=== PATIENT | male | born 1945 | race Caucasian/White ===

== ENCOUNTER 2020-10-17 13:28 | Inpatient (IN) ==
[2020-10-17 15:54] LABS: Basophils # 0.1 K/mcL (0.0-0.2); Basophils % 0.8 %; Eosinophils # 0.2 K/mcL (0.0-0.6); Eosinophils % 3.7 %; Hematocrit 42.9 % (37.5-50.1); Immature Granulocytes % 0.6 % (0-4); Lymphocytes # 0.9 K/mcL (0.6-4.6); Mean Corpuscular HGB Conc 32.6 g/dL (31.6-35.5); Mean Corpuscular Volume 92.1 fL (83.0-100.0); Mean Platelet Volume 9.1 fL (9.4-12.4); Monocytes # 0.9 K/mcL (0.0-1.3); Neutrophils # 4.2 K/mcL (1.6-8.9); Platelet Count 182 K/mcL (140-400); Red Blood Count 4.66 M/mcL (4.19-5.50); Red Cell Distribution Width 13.2 % (11.5-14.5); Segmented Neutrophils % 66.9 %; White Blood Count 6.3 K/mcL (4.3-11.1)
[2020-10-17 16:01] LABS: INR 1.1; Prothrombin Time 12.2 Seconds (9.4-12.1)
[2020-10-17 16:04] LABS: Activated Partial Thrombo Time 33.5 Seconds (26.0-36.0)
[2020-10-17 16:16] LABS: Troponin I 0.05 ng/mL (< 0.04)
[2020-10-17 16:27] LABS: Magnesium 2.1 mg/dL (1.6-2.6); Potassium 4.4 mEq/L (3.5-5.1); Thyroid Stimulating Hormone 3.193 mcIU/mL (0.340-5.600)
[2020-10-17 16:28] LABS: Albumin/Globulin Ratio 1.6 (1.1-2.2); Bilirubin,Total 0.8 mg/dL (0.3-1.0); Calcium 9.2 mg/dL (8.6-10.3); Globulin 2.5 g/dL (2.4-3.5); Total Protein 6.5 g/dL (6.4-8.9)
[2020-10-17 16:38] LABS: Bilirubin,Urine Negative (Negative); Blood,Urine Negative (Negative); Clarity,Urine Clear (Clear); Color,Urine Colorless (Yellow); Glucose,Urine (UA) Normal (Normal); Ketones,Urine Negative (Negative); Leukocyte Esterase,Urine Negative (Negative); Nitrite,Urine Negative (Negative); PH,Urine 6.5 pH Units (5.0-8.0); Protein,Urine 30 mg/dL (Neg-Trace); RBC,Urine 0-3 per hpf (0-3); Specific Gravity,Urine 1.012 (1.010-1.025); Urobilinogen,Urine Normal (Normal)
[2020-10-17] MEDS ORDERED: Naloxone 0.4 MG/ML INJ IVP PRN (16:38)
[2020-10-17] MEDS ORDERED: Ondansetron 4 MG/2 ML VIAL IVP PRN (16:38)
[2020-10-17] MEDS ORDERED: Nitroglycerin 0.4 MG TAB.SUBL SL PRN (16:39)
[2020-10-17] MEDS ORDERED: Acetaminophen 325 MG TABLET PO PRN (16:44)
[2020-10-17] MEDS ORDERED: Morphine Sulfate 2 MG/ML SYRINGE IVP ONE (16:46)
[2020-10-17] MEDS ORDERED: *HR* Dextrose 50 % in Water (Vial) 50 ML VIAL IVP PRN (16:47)
[2020-10-17] MEDS ORDERED: Dextrose Gel 15 GM/37.5 ML TUBE PO PRN ×2 (16:47)
[2020-10-17] MEDS ORDERED: D5% in Water 1,000 ML IVC PRN (16:47)
[2020-10-17] MEDS: GlipiZIDE 5 MG TABLET PO SCH (17:20)
[2020-10-17] MEDS: Furosemide 40 MG TABLET PO SCH (17:20)
[2020-10-17] MEDS ORDERED: Perflutren Lipid Microsphere 1.3 ML in 0.9 % Sodium Chloride 8.7 ML IVP PRN (17:43)
[2020-10-17] MEDS ORDERED: 0.9 % Sodium Chloride 1,000 ML IVC SCH (17:45)
[2020-10-17] MEDS ORDERED: Melatonin 3 MG TABLET PO ONE (20:00)
[2020-10-17] MEDS: Insulin LISPRO 300 UNITS/3 ML VIAL SUBQ SCH (20:24)
[2020-10-17] MEDS: *HR* Heparin 5,000 UNIT/ML VIAL SQ SCH (20:28)
[2020-10-18] MEDS: *HR* Heparin 5,000 UNIT/ML VIAL SQ SCH ×3 (05:32→21:00)
[2020-10-18 06:36] LABS: Hematocrit 39.9 % (37.5-50.1); Mean Corpuscular HGB Conc 32.6 g/dL (31.6-35.5); Mean Corpuscular Hemoglobin 29.9 pg (28.0-33.3); Mean Corpuscular Volume 91.7 fL (83.0-100.0); Mean Platelet Volume 9.5 fL (9.4-12.4); Platelet Count 155 K/mcL (140-400); Red Blood Count 4.35 M/mcL (4.19-5.50); Red Cell Distribution Width 13.1 % (11.5-14.5); White Blood Count 5.8 K/mcL (4.3-11.1)
[2020-10-18 07:05] LABS: Calcium 8.6 mg/dL (8.6-10.3); Chol/HDL Ratio 4.2 (0-4.9); Potassium 4.4 mEq/L (3.5-5.1)
[2020-10-18] MEDS: Insulin LISPRO 300 UNITS/3 ML VIAL SUBQ SCH ×4 (07:14→21:00)
[2020-10-18 08:31] LABS: Estimated Average Glucose 220 mg/dl; Hemoglobin A1C 9.3 %
[2020-10-18] MEDS ORDERED: Metoprolol XL (24 HR) Succ 50 MG TAB.ER.24H PO SCH (09:00)
[2020-10-18] MEDS: Aspirin Enteric Coated 81 MG Tablet PO SCH (09:32)
[2020-10-18] MEDS: GlipiZIDE 5 MG TABLET PO SCH (09:32)
[2020-10-18] MEDS: Furosemide 40 MG TABLET PO SCH ×2 (09:32→16:17)
[2020-10-18] MEDS ORDERED: Regadenoson 0.4 MG/5 ML SYRINGE IVP ONE (11:58)
[2020-10-18] MEDS: carvediloL 6.25 MG TABLET PO SCH (16:17)
[2020-10-18] MEDS ORDERED: carvediloL 6.25 MG TABLET PO SCH (17:00)
[2020-10-18 20:53] LABS: Hematocrit 43.5 % (37.5-50.1); Mean Corpuscular HGB Conc 33.6 g/dL (31.6-35.5); Mean Corpuscular Hemoglobin 30.6 pg (28.0-33.3); Mean Corpuscular Volume 91.2 fL (83.0-100.0); Mean Platelet Volume 9.1 fL (9.4-12.4); Platelet Count 190 K/mcL (140-400); Red Blood Count 4.77 M/mcL (4.19-5.50); Red Cell Distribution Width 12.9 % (11.5-14.5); White Blood Count 6.8 K/mcL (4.3-11.1)
[2020-10-18 20:54] LABS: Hemoglobin 14.6 g/dL (12.9-16.9)
[2020-10-18 21:01] LABS: Heparin anti-factor XA UFH 0.06 IU/mL (0.30-0.70); INR 1.1; Prothrombin Time 12.4 Seconds (9.4-12.1)
[2020-10-18] MEDS: Heparin 25,000UNIT/250ML 1/2NS 25,000 UNIT/250 ML IV.SOLN IVC SCH (21:31)
[2020-10-19 04:30] LABS: Hematocrit 41.7 % (37.5-50.1); Hemoglobin 13.5 g/dL (12.9-16.9); Mean Corpuscular HGB Conc 32.4 g/dL (31.6-35.5); Mean Corpuscular Hemoglobin 29.7 pg (28.0-33.3); Mean Corpuscular Volume 91.6 fL (83.0-100.0); Mean Platelet Volume 9.5 fL (9.4-12.4); Platelet Count 171 K/mcL (140-400); Red Blood Count 4.55 M/mcL (4.19-5.50); Red Cell Distribution Width 13.1 % (11.5-14.5); White Blood Count 6.3 K/mcL (4.3-11.1)
[2020-10-19 04:46] LABS: Calcium 9.1 mg/dL (8.6-10.3)
[2020-10-19] MEDS ORDERED: 0.9 % Sodium Chloride 1,000 ML IVC SCH (08:30)
[2020-10-19] MEDS: NIFEdipine XL (24 HR) 30 MG TAB.ER.24 PO SCH (08:51)
[2020-10-19] MEDS: Furosemide 40 MG TABLET PO SCH (08:52)
[2020-10-19] MEDS: carvediloL 6.25 MG TABLET PO SCH ×2 (08:52→19:10)
[2020-10-19] MEDS: Aspirin Enteric Coated 81 MG Tablet PO SCH (08:52)
[2020-10-19] MEDS: Insulin LISPRO 300 UNITS/3 ML VIAL SUBQ SCH ×4 (08:53→21:25)
[2020-10-19] MEDS: Heparin 25,000UNIT/250ML 1/2NS 25,000 UNIT/250 ML IV.SOLN IVC SCH (22:18)
[2020-10-20 01:41] LABS: Calcium 8.7 mg/dL (8.6-10.3); Phosphorous 3.5 mg/dL (2.7-4.5); Potassium 3.8 mEq/L (3.5-5.1)
[2020-10-20] MEDS: Insulin LISPRO 300 UNITS/3 ML VIAL SUBQ SCH ×4 (07:32→20:40)
[2020-10-20] MEDS: Aspirin Enteric Coated 81 MG Tablet PO SCH (07:42)
[2020-10-20] MEDS: carvediloL 6.25 MG TABLET PO SCH ×2 (07:42→15:56)
[2020-10-20] MEDS: NIFEdipine XL (24 HR) 30 MG TAB.ER.24 PO SCH (07:42)
[2020-10-20 10:14] LABS: Calcium 9.2 mg/dL (8.6-10.3); Potassium 4.2 mEq/L (3.5-5.1)
[2020-10-20] MEDS: Isosorbide MONOnitrate (24 HR) 30 MG TAB.ER.24H PO SCH (16:40)
[2020-10-21 07:24] VITALS: BP 157/83
[2020-10-21] MEDS: carvediloL 6.25 MG TABLET PO SCH (08:31)
[2020-10-21] MEDS: Aspirin Enteric Coated 81 MG Tablet PO SCH (08:31)
[2020-10-21] MEDS: Isosorbide MONOnitrate (24 HR) 30 MG TAB.ER.24H PO SCH (08:31)
[2020-10-21] MEDS: NIFEdipine XL (24 HR) 30 MG TAB.ER.24 PO SCH (08:32)
[2020-10-21] MEDS: Insulin LISPRO 300 UNITS/3 ML VIAL SUBQ SCH (08:32)
== END 2020-10-21 10:20 | disposition home or self-care (01) | DRG 281 ==
LOC: 3BNU → SUATTDRO 14:35
PROVIDERS: ADMIT Internal Medicine; ATTEND Internal Medicine